=== PATIENT | female | born 1970 | race Caucasian/White ===

== ENCOUNTER 2016-06-08 13:15 | Outpatient (RCR) | payer OTHER ==
[~2016-06-08 13:15] MED LIST: ADVAIR 100/28 DISKU1 IH; COZAAR25 MG PO; LAMICTAL 100MG100 MG PO; NORCO 325 MG-7.1 TAB PO; PROVENTIL0.09 MG/A1 IH; SINGULAIR10 MG PO; ZYRTEC 10MG10 MG PO
== END 2016-10-04 | disposition still patient (30) ==
LOC: WSPT
DX: Z47.89 Encounter for other orthopedic aftercare (principal); M25.862 Other specified joint disorders, left knee

== ENCOUNTER 2016-09-21 11:15 | Outpatient (RCR) | payer OTHER | END 2016-10-04 | disposition still patient (30) | LOC: WSPT | DX: Z47.89 Encounter for other orthopedic aftercare (principal); M25.862 Other specified joint disorders, left knee ==

== ENCOUNTER 2016-10-04 15:30 | Outpatient (RCR) | payer OTHER | END 2016-10-05 | disposition still patient (30) | LOC: WSPT | DX: Z47.89 Encounter for other orthopedic aftercare (principal); M25.862 Other specified joint disorders, left knee ==

== ENCOUNTER 2016-10-26 13:15 | Outpatient (RCR) | payer OTHER | END 2017-01-04 | disposition home or self-care (01) | LOC: WSPT | DX: Z47.89 Encounter for other orthopedic aftercare (principal); M25.862 Other specified joint disorders, left knee ==

== ENCOUNTER → 2016-11-03 | Outpatient (CLI) | payer OTHER | LOC: BHSO 08:56 | DX: F41.1 Generalized anxiety disorder (principal) ==

== ENCOUNTER → 2017-02-16 | Outpatient (CLI) | payer OTHER | LOC: BHSO 09:02 | DX: F90.0 Attention-deficit hyperactivity disorder, predominantly inattentive type (principal) ==

== ENCOUNTER → 2017-05-10 | Outpatient (REF) | LOC: WSOH 16:17 | DX: Z02.89 Encounter for other administrative examinations (principal) ==

== ENCOUNTER → 2017-05-30 | Outpatient (CLI) | payer OTHER | LOC: BHSO 09:01 | DX: F41.1 Generalized anxiety disorder (principal) ==

== ENCOUNTER → 2017-06-13 | Outpatient (CLI) | payer OTHER | LOC: MC.RAD 07:40 | DX: Z12.31 Encounter for screening mammogram for malignant neoplasm of breast (principal) ==

== ENCOUNTER → 2017-10-16 | Outpatient (CLI) | payer OTHER | LOC: BHSO 09:00 | DX: F41.1 Generalized anxiety disorder (principal) | CPT/HCPCS: G0463 ==

== ENCOUNTER → 2018-02-07 | Outpatient (CLI) | payer OTHER | LOC: BHSO 07:59 | DX: F90.0 Attention-deficit hyperactivity disorder, predominantly inattentive type (principal) | CPT/HCPCS: G0463 ==

== ENCOUNTER 2018-04-10 09:39 | Day surgery (SDC) | payer OTHER ==
[~2018-04-10] VITALS: Ht 172.7 cm; Wt 112.2 kg
[2018-04-10] VITALS (7 sets, daily range): BP systolic 106–124; BP diastolic 43–70; PULSE 70–85; TEMP 97.5–98.6
[2018-04-10] MEDS ORDERED: VITAMIN D 1001000 IU PO (10:57)
[2018-04-10] MEDS ORDERED: ZANTAC 150MG T150 MG PO (10:59)
[2018-04-10] MEDS ORDERED: BRINTELLIX5 PO (10:59)
[2018-04-10] MEDS ORDERED: MYDAYIS ER 25 M25 MG PO (10:59)
[2018-04-10] MEDS ORDERED: NORCO 325 MG-7.1 TAB PO (14:46)
== END 2018-04-10 15:40 | disposition home or self-care (01) ==
LOC: SDCO 09:39
DX: S83.30XA Tear of articular cartilage of unspecified knee, current, initial encounter (principal); J45.909 Unspecified asthma, uncomplicated; I10 Essential (primary) hypertension; K21.9 Gastro-esophageal reflux disease without esophagitis; F32.9 Major depressive disorder, single episode, unspecified; F41.9 Anxiety disorder, unspecified; M19.90 Unspecified osteoarthritis, unspecified site; Z90.49 Acquired absence of other specified parts of digestive tract; Z90.710 Acquired absence of both cervix and uterus
CPT/HCPCS: J0690; J1100; J1885; J2405; J2704; J3010; J3301; J7120

== ENCOUNTER → 2018-07-18 | Outpatient (CLI) | payer OTHER ==
[~2018-07-18] MED LIST changes: +BRINTELLIX5 PO; +MYDAYIS ER 25 M25 MG PO; +VITAMIN D 1001000 IU PO; +ZANTAC 150MG T150 MG PO
== END ==
LOC: BHSO 07:58
DX: F90.0 Attention-deficit hyperactivity disorder, predominantly inattentive type (principal)
CPT/HCPCS: G0463

== ENCOUNTER 2018-09-27 05:34 | Day surgery (SDC) | payer OTHER ==
[~2018-09-27] VITALS: Ht 175.3 cm; Wt 116.4 kg
[2018-09-27] VITALS (7 sets, daily range): BP systolic 92–131; BP diastolic 40–76; PULSE 73–97; TEMP 97.6–98.1
[2018-09-27] MEDS ORDERED: BRINTELLIX10 PO (06:29)
--- NOTE | 2018-09-27 10:10 | NUR ---
Patient returns to room 8 per cart and is awake and alert. Sling and swathe on the left upper arm. Left arm numb due to block placed prior to surgery. Aquacel dressing dry on the left shoulder and ice bag in place. IV fluids infusing and site free of redness. Siderails up x2 and call light in reach. States she is sleepy and wants to rest.
--- NOTE | 2018-09-27 10:25 | NUR ---
Resting with eyes closed and head of cart elevated. Ice on the left shoulder and left arm remains numb.
[2018-09-27] MEDS ORDERED: NORCO 325 MG-7.1 TAB PO (10:32)
[2018-09-27] MEDS ORDERED: ROXICODONE 55 MG/TAB PO (10:33)
--- NOTE | 2018-09-27 10:40 | NUR ---
Resting with eyes closed.
--- NOTE | 2018-09-27 10:55 | NUR ---
Awake and drinking grape juice.
--- NOTE | 2018-09-27 11:10 | NUR ---
Eating muffin and drinking Sprite. Oxygen removed and sats 93%. Denies nausea or pain.
--- NOTE | 2018-09-27 11:40 | NUR ---
Drinking water and sipping on Sprite.
--- NOTE | 2018-09-27 12:00 | NUR ---
IV to INT. Assisted patient with dressing and left arm remains numb and in sling and swathe with abductor pillow in place. Slightly nauseated with movement and requests antiemetic prior to discharge.
--- NOTE | 2018-09-27 12:11 | NUR ---
Medicated with Zofran 4mg IV. Resting on cart.
--- NOTE | 2018-09-27 12:37 | NUR ---
Ambulatory to the bathroom and is able to void. Returns to room and given dismissal instructions. Voices understanding of home cares and follow as scheduled. Has physical therapy appointments already scheduled. Provided aquacel dressing x1. Given script for Dixie and Oxycodone and phyical therapy. INT discontinued.
--- NOTE | 2018-09-27 12:45 | NUR ---
Patient dismissed to home per private vehicle driven by friend with all instructions in hand. Taken to the front door per wheelchair and assisted into car.
== END 2018-09-27 12:45 | disposition home or self-care (01) ==
LOC: SDCO 05:34
DX: M75.121 Complete rotator cuff tear or rupture of right shoulder, not specified as traumatic (principal); M17.11 Unilateral primary osteoarthritis, right knee; M19.032 Primary osteoarthritis, left wrist; J45.909 Unspecified asthma, uncomplicated; K21.9 Gastro-esophageal reflux disease without esophagitis; F41.9 Anxiety disorder, unspecified; F32.9 Major depressive disorder, single episode, unspecified; Z90.49 Acquired absence of other specified parts of digestive tract; Z88.5 Allergy status to narcotic agent; Z90.710 Acquired absence of both cervix and uterus; Z82.61 Family history of arthritis; Z80.8 Family history of malignant neoplasm of other organs or systems
CPT/HCPCS: C1713; J0171; J0690; J1100; J1885; J2250; J2405; J2704; J2710; J2795; J3010; J3370; J7120

== ENCOUNTER → 2018-10-24 | Outpatient (CLI) | payer OTHER ==
[~2018-10-24] MED LIST changes: +BRINTELLIX10 PO; +ROXICODONE 55 MG/TAB PO
== END ==
LOC: BHSO 13:09
DX: F90.0 Attention-deficit hyperactivity disorder, predominantly inattentive type (principal)
CPT/HCPCS: G0463

== ENCOUNTER 2018-12-26 14:30 | Outpatient (RCR) | payer OTHER | END 2018-12-30 | disposition home or self-care (01) | LOC: WSPT | DX: M75.122 Complete rotator cuff tear or rupture of left shoulder, not specified as traumatic (principal) ==

== ENCOUNTER 2019-01-29 07:12 | Day surgery (SDC) | payer OTHER ==
[~2019-01-29] VITALS: Ht 175.3 cm; Wt 119.4 kg
[2019-01-29 08:01] VITALS: BP 109/62; PULSE 89; TEMP 98.2
[2019-01-29] MEDS ORDERED: CELEBREX 200MG200 MG PO (08:01)
--- NOTE | 2019-01-29 09:20 | NUR ---
PT REMAINS ALERT, CONTINUES TO DENY PAIN OR NAUSEA. IV DC FOR DISCHARGE. INSTRUCTIONS GIVEN. DR. ROB IN ROOM. PT DISCHARGED TO HOME WITH MAIL HANDLER SORTER.
[2019-01-29 09:25] VITALS: BP 130/75; PULSE 77; TEMP 97.8
--- NOTE | 2019-01-29 09:25 | NUR ---
PT IS ALERT. RETURNS FROM PROCEDURE TO [facility]. AMBULATES FROM CART TO CHAIR WITH STANDBY ASSIST. MONITORS APPLIED. VSS AND WNL. PT DENIES PAIN OR NAUSESA. REQUESTS MUFFIN AND WATER. CALL LIGHT IN REACH. REPORT OBTAINED FROM OR STAFF.
[2019-01-29 09:40] VITALS: BP 117/94; PULSE 78
--- NOTE | 2019-01-29 09:40 | NUR ---
PT CONTINUES TO DENY PAIN OR NAUSEA. IV SALINE LOCKED. PT UP TO BATHROOM INDEPENDENTLY. DRESSES SELF. CALL LIGHT IN REACH.
[2019-01-29 09:55] VITALS: BP 124/69; PULSE 76
== END 2019-01-29 10:00 | disposition home or self-care (01) ==
LOC: SDCO 07:12
DX: Z12.11 Encounter for screening for malignant neoplasm of colon (principal); K64.4 Residual hemorrhoidal skin tags; K62.89 Other specified diseases of anus and rectum; K21.9 Gastro-esophageal reflux disease without esophagitis; J45.909 Unspecified asthma, uncomplicated; I10 Essential (primary) hypertension; Z90.49 Acquired absence of other specified parts of digestive tract; Z90.710 Acquired absence of both cervix and uterus; Z88.5 Allergy status to narcotic agent; Z88.1 Allergy status to other antibiotic agents
CPT/HCPCS: J2250; J3010

== ENCOUNTER 2019-04-01 08:45 | Outpatient (RCR) | payer OTHER ==
[~2019-04-01 08:45] MED LIST changes: +CELEBREX 200MG200 MG PO
== END 2019-04-02 ==
LOC: WSPT
DX: M75.102 Unspecified rotator cuff tear or rupture of left shoulder, not specified as traumatic (principal)

== ENCOUNTER → 2019-04-16 | Outpatient (CLI) | payer OTHER | LOC: BHSO 08:46 | DX: F90.0 Attention-deficit hyperactivity disorder, predominantly inattentive type (principal) | CPT/HCPCS: G0463 ==

== ENCOUNTER 2019-04-18 08:00 | Outpatient (RCR) | payer OTHER | END 2019-07-02 | LOC: WSPT | DX: Z09 Encounter for follow-up examination after completed treatment for conditions other than malignant neoplasm (principal); Z98.890 Other specified postprocedural states ==

== ENCOUNTER → 2019-07-16 | Outpatient (CLI) | payer OTHER | LOC: BHSO 08:21 | DX: F90.0 Attention-deficit hyperactivity disorder, predominantly inattentive type (principal) | CPT/HCPCS: G0463 ==

== ENCOUNTER → 2019-11-14 | Outpatient (CLI) | payer OTHER | LOC: BHSO 08:22 | DX: F33.42 Major depressive disorder, recurrent, in full remission (principal) | CPT/HCPCS: G0463 ==

== ENCOUNTER → 2020-01-14 | Outpatient (CLI) | payer OTHER ==
[2020-01-14 15:53] LABS: HEMOGLOBIN 13.5 g/dl (12.5-16.0); MEAN CELL VOLUME 98 fl (80.0-100.0); MEAN CORPUSCULAR HEMOGLOBIN 33 pg (27.0-31.0); MEAN CORPUSCULAR HGB CONC 34 g/dl (33.0-37.0); MEAN PLATELET VOLUME 9.5 fl (7.4-10.4); PLATELET COUNT 343 K/mm3 (130-400); RED BLOOD COUNT 4.09 M/mm3 (4.10-5.30); REDCELL DISTRIBUTION WIDTH-CV 12.2 % (11.5-14.5)
[2020-01-14 16:11] LABS: ALBUMIN 4.5 gm/dL (3.5-5.0); BILIRUBIN,TOTAL 0.7 mg/dL (0.0-1.0); CALCIUM 9.6 mg/dL (8.4-10.2); CREATININE, serum 0.86 (0.52-1.25); POTASSIUM 4.2 mmol/L (3.4-5.0); TOTAL PROTEIN 7.8 gm/dL (6.4-8.2)
[2020-01-14 16:12] LABS: LYMPHOCYTE 31 % (20.0-51.0); NEUTROPHILS 61 % (42.0-75.2); PLATELET ESTIMATE NORMAL (NORMAL)
== END ==
LOC: COL.LAB 14:20
PROVIDERS: Internal Medicine
DX: E83.110 Hereditary hemochromatosis (principal)

== ENCOUNTER → 2020-05-12 | Outpatient (CLI) | payer OTHER | LOC: BHSO 08:45 | DX: F90.0 Attention-deficit hyperactivity disorder, predominantly inattentive type (principal) | CPT/HCPCS: G0463 ==